=== PATIENT | male | born 1940 | race Caucasian/White ===

== ENCOUNTER 2022-09-08 11:38 | Inpatient (IN) | payer MEDICARE ==
[2022-09-08 12:40] LABS: #Eosinphils 0.2 10x3/uL (0.0-0.5); #Monocytes 1.6 10x3/uL (0.0-1.1); #Neutrophils 6.9 10x3/uL (1.5-8.4); %Basophils 0.4 % (0.0-2.0); %Lymphocytes 22.2 % (18.0-47.0); %Monocytes 14.4 % (0.0-10.0); %Neutrophils 60.6 % (40.0-75.0); Hemoglobin 13.9 g/dL (13.5-17.5); Mean Corpuscular HGB CONC 33.1 g/dL (32.0-36.0); Mean Corpuscular Hemoglobin 29.6 pg (27.0-33.0); Mean Corpuscular Volume 89.6 fl (81.2-95.1); Mean Platelet Volume 9.1 fl (7.4-10.4); Platelet Count 325 10x3/uL (150-450); RBC Distribution Width 13.9 % (11.5-14.5); Red Blood Cell (RBC) Count 4.69 10x6/uL (4.32-5.72); White Blood Cell (WBC) Count 11.3 10x3/uL (3.5-10.5)
[2022-09-08 12:50] LABS: ALT (SGPT) 25 U/L (8-55); AST (SGOT) 28 U/L (5-34); Acetaminophen Less than 10.0 mcg/mL (10.0-30.0); Albumin 3.9 g/dL (3.4-4.8); Alcohol Less than 10 mg/dL (Less than 10); Alkaline Phosphatase 63 U/L (40-110); Anion Gap 14 mmol/L (10-20); BUN (Urea Nitrogen) 26 mg/dL (8.4-25.7); Bilirubin, Total 0.7 mg/dL (0.2-1.2); Calc. Creatinine Clearance 0 mL/min (70-130); Calcium 9.1 mg/dL (7.8-10.44); Carbon Dioxide 17 mmol/L (23-31); Chloride 109 mmol/L (98-107); Estimated GFR 87; Globulin 3.1 g/dL (2.4-3.5); Glucose 106 mg/dL (83-110); Potassium 4.1 mmol/L (3.5-5.1); Salicylate Less than 8.0 mg/dL (15.0-30.0); Sodium 136 mmol/L (136-145)
[2022-09-08 13:49] LABS: Bilirubin Neg (Negative); Blood, Urine Negative (Negative); Clarity Clear (Clear); Glucose, Urine (Dipstick) Normal (Negative); Ketone, Urine Negative (Negative); Leukocyte Negative (Negative); Nitrite Negative (Negative); Protein, Urine (Dipstick) 15 mg/dl (Neg-Trace); Specific Gravity, Urine 1.025 (1.005-1.030); Urobilinogen Normal mg/dL (Less than 2)
[2022-09-08 13:59] LABS: Amphetamine Not Detected (NotDetected); Barbiturates Screen Not Detected (NotDetected); Benzodiazepine Screen Not Detected (NotDetected); Cocaine Metabolite Screen Not Detected (NotDetected); Methadone Not Detected (NotDetected); Methamphetamine Not Detected (NotDetected); Opiate Screen Not Detected (NotDetected); Oxycodone Screen Not Detected (NotDetected); Phencyclidine (PCP) Not Detected (NotDetected); THC/Cannabinoid Screen Not Detected (NotDetected); Tricyclic Screen Not Detected (NotDetected)
[2022-09-08] MEDS ORDERED: Ondansetron ODT 4 MG TAB PO PRN (15:53)
[2022-09-08] MEDS ORDERED: Acetaminophen 325 MG TAB PO PRN (15:53)
[2022-09-08] MEDS ORDERED: Ondansetron PF 4 MG/2 ML Vial IVP PRN (15:53)
[2022-09-08 21:07] VITALS: BMI 30.6
[2022-09-08] MEDS ORDERED: Sodium Chloride 0.9% 1,000 ML IV SCH (23:00)
[2022-09-09 04:31] LABS: #Eosinphils 0.3 10x3/uL (0.0-0.5); #Monocytes 1.3 10x3/uL (0.0-1.1); #Neutrophils 6.2 10x3/uL (1.5-8.4); %Basophils 0.4 % (0.0-2.0); %Eosinophils 2.5 % (0.0-6.0); %Lymphocytes 23.4 % (18.0-47.0); %Monocytes 12.9 % (0.0-10.0); %Neutrophils 60.5 % (40.0-75.0); Hemoglobin 13.1 g/dL (13.5-17.5); Mean Corpuscular HGB CONC 33.9 g/dL (32.0-36.0); Mean Corpuscular Hemoglobin 30.1 pg (27.0-33.0); Mean Corpuscular Volume 88.7 fl (81.2-95.1); Mean Platelet Volume 9.5 fl (7.4-10.4); Platelet Count 294 10x3/uL (150-450); RBC Distribution Width 13.5 % (11.5-14.5); Red Blood Cell (RBC) Count 4.35 10x6/uL (4.32-5.72); White Blood Cell (WBC) Count 10.3 10x3/uL (3.5-10.5)
[2022-09-09 04:49] LABS: Anion Gap 14 mmol/L (10-20); BUN (Urea Nitrogen) 19 mg/dL (8.4-25.7); Calc. Creatinine Clearance 97 mL/min (70-130); Calcium 8.7 mg/dL (7.8-10.44); Carbon Dioxide 20 mmol/L (23-31); Chloride 109 mmol/L (98-107); Estimated GFR 87; Glucose 105 mg/dL (83-110); Sodium 139 mmol/L (136-145)
[2022-09-09] MEDS: Lactated Ringer's 500 ML IV SCH ×2 (11:56→23:31)
[2022-09-09] MEDS ORDERED: Doxepin HCl 10 MG CAP PO PRN (16:53)
[2022-09-09] MEDS ORDERED: Polyethylene Glycol 3350 17 GM Packet PO SCH (18:00)
[2022-09-09] MEDS ORDERED: Ziprasidone 20 MG VIAL IM SCH (19:00)
[2022-09-09] MEDS ORDERED: QUEtiapine 25 MG TAB PO SCH (21:00)
[2022-09-10] MEDS ORDERED: Sterile Water 10 ML ONE (05:57)
[2022-09-10] MEDS ORDERED: Ziprasidone 20 MG VIAL IM SCH (06:00)
[2022-09-10] MEDS: Lactated Ringer's 500 ML IV SCH ×2 (06:31→15:45)
[2022-09-10 08:26] LABS: #Monocytes 0.9 10x3/uL (0.0-1.1); %Basophils 0.4 % (0.0-2.0); %Eosinophils 0.4 % (0.0-6.0); %Lymphocytes 17.4 % (18.0-47.0); %Monocytes 8.6 % (0.0-10.0); %Neutrophils 72.8 % (40.0-75.0); Mean Corpuscular HGB CONC 33.7 g/dL (32.0-36.0); Mean Corpuscular Hemoglobin 29.8 pg (27.0-33.0); Mean Corpuscular Volume 88.5 fl (81.2-95.1); Mean Platelet Volume 9.1 fl (7.4-10.4); Platelet Count 391 10x3/uL (150-450); RBC Distribution Width 13.4 % (11.5-14.5); White Blood Cell (WBC) Count 10.9 10x3/uL (3.5-10.5)
[2022-09-10 09:10] LABS: Anion Gap 14 mmol/L (10-20); BUN (Urea Nitrogen) 16 mg/dL (8.4-25.7); Calc. Creatinine Clearance 72 mL/min (70-130); Calcium 9.5 mg/dL (7.8-10.44); Carbon Dioxide 24 mmol/L (23-31); Chloride 105 mmol/L (98-107); Estimated GFR 63; Glucose 129 mg/dL (83-110); Potassium 4.2 mmol/L (3.5-5.1); Sodium 139 mmol/L (136-145)
[2022-09-10] MEDS: Polyethylene Glycol 3350 17 GM Packet PO SCH (14:45)
[2022-09-10] MEDS: pyridOXINE 50 MG (B6) TAB PO SCH (21:41)
[2022-09-10] MEDS: Aspirin 81 mg Enteric Coated Tablet PO SCH (21:41)
[2022-09-10] MEDS: Cyanocobalamin (Vitamin B-12) 1,000 MCG TAB PO SCH (21:42)
[2022-09-10] MEDS: Folic Acid 1 MG TAB PO SCH (21:42)
[2022-09-10] MEDS: Heparin 5,000 UNITS/ML VIAL SC SCH (21:42)
[2022-09-10] MEDS: Thiamine 100 MG TAB PO SCH (21:43)
[2022-09-10] MEDS: Multivit, Therapeutic 1 TAB PO SCH (21:43)
[2022-09-10] MEDS ORDERED: QUEtiapine 25 MG TAB PO SCH (22:15)
[2022-09-11 04:00] LABS: #Eosinphils 0.4 10x3/uL (0.0-0.5); #Monocytes 1.2 10x3/uL (0.0-1.1); #Neutrophils 5.8 10x3/uL (1.5-8.4); %Basophils 0.4 % (0.0-2.0); %Eosinophils 3.3 % (0.0-6.0); %Lymphocytes 30.4 % (18.0-47.0); %Monocytes 11.5 % (0.0-10.0); %Neutrophils 54.2 % (40.0-75.0); Hemoglobin 12.7 g/dL (13.5-17.5); Mean Corpuscular HGB CONC 33.7 g/dL (32.0-36.0); Mean Corpuscular Hemoglobin 29.9 pg (27.0-33.0); Mean Corpuscular Volume 88.7 fl (81.2-95.1); Platelet Count 338 10x3/uL (150-450); RBC Distribution Width 13.6 % (11.5-14.5); Red Blood Cell (RBC) Count 4.25 10x6/uL (4.32-5.72); White Blood Cell (WBC) Count 10.7 10x3/uL (3.5-10.5)
[2022-09-11 04:04] LABS: Phosphorus 4.1 mg/dL (2.3-4.7)
[2022-09-11 04:08] LABS: Anion Gap 14 mmol/L (10-20); BUN (Urea Nitrogen) 20 mg/dL (8.4-25.7); Calc. Creatinine Clearance 79 mL/min (70-130); Calcium 8.7 mg/dL (7.8-10.44); Carbon Dioxide 23 mmol/L (23-31); Chloride 107 mmol/L (98-107); Estimated GFR 71; Glucose 112 mg/dL (83-110); Magnesium 2.1 mg/dL (1.6-2.6); Potassium 3.9 mmol/L (3.5-5.1); Sodium 140 mmol/L (136-145)
[2022-09-11] MEDS ORDERED: Lactated Ringer's 500 ML IV SCH (06:00)
[2022-09-11] MEDS: Lactated Ringer's 1,000 ML IV SCH (06:31)
[2022-09-11] MEDS: Lactated Ringer's 500 ML IV SCH (06:49)
[2022-09-11] MEDS: Polyethylene Glycol 3350 17 GM Packet PO SCH ×2 (09:30→22:55)
[2022-09-11] MEDS: Heparin 5,000 UNITS/ML VIAL SC SCH ×2 (09:30→22:54)
[2022-09-11] MEDS: Sterile Water 10 ML ONE ×2 (20:00→20:43)
[2022-09-11] MEDS ORDERED: Ziprasidone 20 MG VIAL IM SCH (20:30)
[2022-09-11] MEDS ORDERED: QUEtiapine 25 MG TAB PO SCH (21:00)
[2022-09-11] MEDS ORDERED: Bisacodyl 10 MG SUPP PR SCH (21:00)
[2022-09-11] MEDS: Aspirin 81 mg Enteric Coated Tablet PO SCH ×2 (22:38→23:07)
[2022-09-11] MEDS: Folic Acid 1 MG TAB PO SCH ×2 (22:38→23:07)
[2022-09-11] MEDS: QUEtiapine 25 MG TAB PO SCH ×2 (22:40→23:02)
[2022-09-11] MEDS: Cyanocobalamin (Vitamin B-12) 1,000 MCG TAB PO SCH (22:54)
[2022-09-11] MEDS: Multivit, Therapeutic 1 TAB PO SCH (22:54)
[2022-09-11] MEDS: Senokot S 8.6-50 MG TAB PO SCH (22:55)
[2022-09-11] MEDS: pyridOXINE 50 MG (B6) TAB PO SCH (22:55)
[2022-09-11] MEDS: Thiamine 100 MG TAB PO SCH (22:55)
[2022-09-12] MEDS: Lactated Ringer's 1,000 ML IV SCH ×3 (02:30→22:30)
[2022-09-12 03:44] LABS: Anion Gap 15 mmol/L (10-20); BUN (Urea Nitrogen) 16 mg/dL (8.4-25.7); Calc. Creatinine Clearance 84 mL/min (70-130); Calcium 9.2 mg/dL (7.8-10.44); Carbon Dioxide 23 mmol/L (23-31); Chloride 102 mmol/L (98-107); Estimated GFR 76; Glucose 142 mg/dL (83-110); Potassium 4.1 mmol/L (3.5-5.1); Sodium 136 mmol/L (136-145)
[2022-09-12 03:56] LABS: #Monocytes 0.8 10x3/uL (0.0-1.1); #Neutrophils 10.8 10x3/uL (1.5-8.4); %Basophils 0.2 % (0.0-2.0); %Eosinophils 0.2 % (0.0-6.0); %Lymphocytes 10.7 % (18.0-47.0); %Monocytes 5.8 % (0.0-10.0); %Neutrophils 82.7 % (40.0-75.0); Hemoglobin 13.7 g/dL (13.5-17.5); Mean Corpuscular HGB CONC 34.3 g/dL (32.0-36.0); Mean Corpuscular Hemoglobin 30.1 pg (27.0-33.0); Mean Corpuscular Volume 87.7 fl (81.2-95.1); Mean Platelet Volume 9.2 fl (7.4-10.4); Platelet Count 372 10x3/uL (150-450); RBC Distribution Width 13.1 % (11.5-14.5); Red Blood Cell (RBC) Count 4.55 10x6/uL (4.32-5.72)
[2022-09-12] MEDS: Senokot S 8.6-50 MG TAB PO SCH ×2 (10:46→22:46)
[2022-09-12] MEDS: Heparin 5,000 UNITS/ML VIAL SC SCH ×2 (10:47→22:42)
[2022-09-12] MEDS: Polyethylene Glycol 3350 17 GM Packet PO SCH ×2 (10:47→22:38)
[2022-09-12] MEDS ORDERED: Bisacodyl 10 MG SUPP PR SCH ×4 (12:15→14:00)
[2022-09-12] MEDS ORDERED: Milk Of Magnesia 30 ML UDCUP PO SCH (14:00)
[2022-09-12] MEDS ORDERED: Piperacillin/Tazobactam 3.375 GM in Sodium Chloride 0.9% 100 ML IVPB SCH ×2 (14:30→15:00)
[2022-09-12] MEDS: Piperacillin/Tazobactam 3.375 GM in Sodium Chloride 0.9% 100 ML IVPB SCH (22:31)
[2022-09-12] MEDS: Cyanocobalamin (Vitamin B-12) 1,000 MCG TAB PO SCH (22:40)
[2022-09-12] MEDS: pyridOXINE 50 MG (B6) TAB PO SCH (22:40)
[2022-09-12] MEDS: Aspirin 81 mg Enteric Coated Tablet PO SCH (22:40)
[2022-09-12] MEDS: Multivit, Therapeutic 1 TAB PO SCH (22:40)
[2022-09-12] MEDS: Folic Acid 1 MG TAB PO SCH (22:40)
[2022-09-12] MEDS: QUEtiapine 25 MG TAB PO SCH (22:42)
[2022-09-12] MEDS: Thiamine 100 MG TAB PO SCH (22:46)
[2022-09-12] MEDS: Metamucil PACK PO SCH (23:03)
[2022-09-13] MEDS: Piperacillin/Tazobactam 3.375 GM in Sodium Chloride 0.9% 100 ML IVPB SCH ×3 (04:07→21:56)
[2022-09-13 04:25] LABS: #Eosinphils 0.3 10x3/uL (0.0-0.5); #Monocytes 1.1 10x3/uL (0.0-1.1); #Neutrophils 6.7 10x3/uL (1.5-8.4); %Basophils 0.4 % (0.0-2.0); %Eosinophils 2.5 % (0.0-6.0); %Lymphocytes 23.9 % (18.0-47.0); %Monocytes 10.2 % (0.0-10.0); %Neutrophils 62.7 % (40.0-75.0); Hemoglobin 12.8 g/dL (13.5-17.5); Mean Corpuscular HGB CONC 34.2 g/dL (32.0-36.0); Mean Corpuscular Hemoglobin 30.2 pg (27.0-33.0); Mean Corpuscular Volume 88.2 fl (81.2-95.1); Mean Platelet Volume 8.8 fl (7.4-10.4); Platelet Count 328 10x3/uL (150-450); RBC Distribution Width 13.2 % (11.5-14.5); Red Blood Cell (RBC) Count 4.24 10x6/uL (4.32-5.72); White Blood Cell (WBC) Count 10.6 10x3/uL (3.5-10.5)
[2022-09-13 04:29] LABS: Anion Gap 12 mmol/L (10-20); BUN (Urea Nitrogen) 15 mg/dL (8.4-25.7); Calc. Creatinine Clearance 80 mL/min (70-130); Calcium 8.9 mg/dL (7.8-10.44); Carbon Dioxide 24 mmol/L (23-31); Chloride 104 mmol/L (98-107); Estimated GFR 71; Glucose 124 mg/dL (83-110); Potassium 3.9 mmol/L (3.5-5.1); Sodium 136 mmol/L (136-145)
[2022-09-13 04:30] LABS: CRP (Inflammatory) 3.42 mg/dL (= or < 0.5); Magnesium 2.1 mg/dL (1.6-2.6)
[2022-09-13 04:32] LABS: Lactic Acid 0.8 mmol/L (0.5-2.2)
[2022-09-13 04:34] LABS: Phosphorus 3.8 mg/dL (2.3-4.7)
[2022-09-13] MEDS ORDERED: Metamucil PACK ONE (11:19)
[2022-09-13] MEDS: Polyethylene Glycol 3350 17 GM Packet PO SCH ×2 (11:28→22:03)
[2022-09-13] MEDS: Metamucil PACK PO SCH ×2 (11:28→22:04)
[2022-09-13] MEDS: Senokot S 8.6-50 MG TAB PO SCH ×2 (11:29→22:03)
[2022-09-13] MEDS: Heparin 5,000 UNITS/ML VIAL SC SCH ×2 (11:29→22:05)
[2022-09-13] MEDS ORDERED: Milk Of Magnesia 30 ML UDCUP PO SCH (12:00)
[2022-09-13] MEDS: Bisacodyl 10 MG SUPP PR SCH (14:48)
[2022-09-13] MEDS: Budesonide 0.5 MG/2 ML NEB NEB SCH (20:55)
[2022-09-13] MEDS: Cyanocobalamin (Vitamin B-12) 1,000 MCG TAB PO SCH (21:57)
[2022-09-13] MEDS: Multivit, Therapeutic 1 TAB PO SCH (21:57)
[2022-09-13] MEDS: Aspirin 81 mg Enteric Coated Tablet PO SCH (21:57)
[2022-09-13] MEDS: QUEtiapine 25 MG TAB PO SCH (21:57)
[2022-09-13] MEDS: Folic Acid 1 MG TAB PO SCH (21:57)
[2022-09-13] MEDS: pyridOXINE 50 MG (B6) TAB PO SCH (21:58)
[2022-09-13] MEDS: Saccharomyces boulardii 250 MG CAP PO SCH (23:02)
[2022-09-13] MEDS: Thiamine 100 MG TAB PO SCH (23:03)
[2022-09-14 04:35] LABS: #Basophils 0.1 10x3/uL (0.0-0.2); #Eosinphils 0.4 10x3/uL (0.0-0.5); #Neutrophils 6.7 10x3/uL (1.5-8.4); %Basophils 0.7 % (0.0-2.0); %Eosinophils 3.5 % (0.0-6.0); %Lymphocytes 22.2 % (18.0-47.0); %Monocytes 9.4 % (0.0-10.0); %Neutrophils 63.8 % (40.0-75.0); Hemoglobin 13.3 g/dL (13.5-17.5); Mean Corpuscular HGB CONC 33.8 g/dL (32.0-36.0); Mean Corpuscular Hemoglobin 29.8 pg (27.0-33.0); Mean Corpuscular Volume 88.1 fl (81.2-95.1); Mean Platelet Volume 9.1 fl (7.4-10.4); Platelet Count 362 10x3/uL (150-450); RBC Distribution Width 13.4 % (11.5-14.5); Red Blood Cell (RBC) Count 4.46 10x6/uL (4.32-5.72); White Blood Cell (WBC) Count 10.4 10x3/uL (3.5-10.5)
[2022-09-14 04:41] LABS: ALT (SGPT) 28 U/L (8-55); AST (SGOT) 28 U/L (5-34); Albumin 3.8 g/dL (3.4-4.8); Alkaline Phosphatase 54 U/L (40-110); Anion Gap 15 mmol/L (10-20); BUN (Urea Nitrogen) 20 mg/dL (8.4-25.7); Bilirubin, Total 0.7 mg/dL (0.2-1.2); Calc. Creatinine Clearance 71 mL/min (70-130); Calcium 9.2 mg/dL (7.8-10.44); Carbon Dioxide 22 mmol/L (23-31); Chloride 106 mmol/L (98-107); Estimated GFR 61; Globulin 2.8 g/dL (2.4-3.5); Glucose 130 mg/dL (83-110); Potassium 4.2 mmol/L (3.5-5.1); Protein, Total 6.6 g/dL (5.8-8.1); Sodium 139 mmol/L (136-145)
[2022-09-14] MEDS: Piperacillin/Tazobactam 3.375 GM in Sodium Chloride 0.9% 100 ML IVPB SCH (04:56)
[2022-09-14] MEDS: Polyethylene Glycol 3350 17 GM Packet PO SCH (08:10)
[2022-09-14] MEDS: Heparin 5,000 UNITS/ML VIAL SC SCH ×2 (08:11→22:41)
[2022-09-14] MEDS: Senokot S 8.6-50 MG TAB PO SCH ×2 (08:11→22:40)
[2022-09-14] MEDS: Metamucil PACK PO SCH ×3 (08:11→22:40)
[2022-09-14] MEDS: Budesonide 0.5 MG/2 ML NEB NEB SCH ×2 (08:30→18:35)
[2022-09-14] MEDS ORDERED: Polyethylene Glycol 3350 17 GM Packet PO PRN (10:58)
[2022-09-14] MEDS: Bisacodyl 10 MG SUPP PR SCH (14:27)
[2022-09-14] MEDS: Aspirin 81 mg Enteric Coated Tablet PO SCH (22:38)
[2022-09-14] MEDS: Thiamine 100 MG TAB PO SCH (22:39)
[2022-09-14] MEDS: QUEtiapine 25 MG TAB PO SCH (22:39)
[2022-09-14] MEDS: Folic Acid 1 MG TAB PO SCH (22:39)
[2022-09-14] MEDS: Amoxicillin/Potassium Clav 875 MG TAB PO SCH (22:39)
[2022-09-14] MEDS: Cyanocobalamin (Vitamin B-12) 1,000 MCG TAB PO SCH (22:39)
[2022-09-14] MEDS: pyridOXINE 50 MG (B6) TAB PO SCH (22:39)
[2022-09-14] MEDS: Multivit, Therapeutic 1 TAB PO SCH (22:40)
[2022-09-14] MEDS: Saccharomyces boulardii 250 MG CAP PO SCH (22:40)
[2022-09-15] MEDS: Folic Acid 1 MG TAB PO SCH (02:05)
[2022-09-15] MEDS: Aspirin 81 mg Enteric Coated Tablet PO SCH ×2 (02:05→19:38)
[2022-09-15] MEDS: Amoxicillin/Potassium Clav 875 MG TAB PO SCH ×3 (02:05→19:37)
[2022-09-15] MEDS: Cyanocobalamin (Vitamin B-12) 1,000 MCG TAB PO SCH (02:05)
[2022-09-15] MEDS: Senokot S 8.6-50 MG TAB PO SCH ×2 (02:06→07:57)
[2022-09-15] MEDS: Metamucil PACK PO SCH ×2 (02:06→07:58)
[2022-09-15] MEDS: Saccharomyces boulardii 250 MG CAP PO SCH (02:06)
[2022-09-15] MEDS: pyridOXINE 50 MG (B6) TAB PO SCH ×2 (02:06→19:38)
[2022-09-15] MEDS: Multivit, Therapeutic 1 TAB PO SCH (02:06)
[2022-09-15] MEDS: QUEtiapine 25 MG TAB PO SCH ×2 (02:06→19:37)
[2022-09-15] MEDS: Thiamine 100 MG TAB PO SCH (02:07)
[2022-09-15 05:43] LABS: #Basophils 0.1 10x3/uL (0.0-0.2); #Eosinphils 0.4 10x3/uL (0.0-0.5); #Neutrophils 6.3 10x3/uL (1.5-8.4); %Basophils 0.6 % (0.0-2.0); %Eosinophils 3.8 % (0.0-6.0); %Lymphocytes 23.9 % (18.0-47.0); %Monocytes 9.7 % (0.0-10.0); %Neutrophils 61.6 % (40.0-75.0); Hemoglobin 13.4 g/dL (13.5-17.5); Mean Corpuscular HGB CONC 33.1 g/dL (32.0-36.0); Mean Corpuscular Hemoglobin 29.5 pg (27.0-33.0); Platelet Count 386 10x3/uL (150-450); RBC Distribution Width 13.3 % (11.5-14.5); Red Blood Cell (RBC) Count 4.55 10x6/uL (4.32-5.72); White Blood Cell (WBC) Count 10.1 10x3/uL (3.5-10.5)
[2022-09-15 06:04] LABS: Anion Gap 13 mmol/L (10-20); BUN (Urea Nitrogen) 21 mg/dL (8.4-25.7); Calc. Creatinine Clearance 66 mL/min (70-130); Calcium 9.1 mg/dL (7.8-10.44); Carbon Dioxide 24 mmol/L (23-31); Chloride 105 mmol/L (98-107); Estimated GFR 57; Glucose 141 mg/dL (83-110); Sodium 138 mmol/L (136-145)
[2022-09-15] MEDS: Budesonide 0.5 MG/2 ML NEB NEB SCH ×2 (06:50→19:26)
[2022-09-15] MEDS: Heparin 5,000 UNITS/ML VIAL SC SCH (08:00)
[2022-09-15] MEDS: Bisacodyl 10 MG SUPP PR SCH (15:44)
[2022-09-15 20:34] VITALS: BP 154/92; TEMP 98.3
== END 2022-09-15 20:00 | DRG 70 ==
LOC: CSHERS 11:38 → CSHTELE 15:53
PROVIDERS: ADMIT Internal Medicine; ATTEND Internal Medicine
DX: G93.41 Metabolic encephalopathy (principal); J69.0 Pneumonitis due to inhalation of food and vomit; E87.20 Acidosis, unspecified; G93.49 Other encephalopathy; K59.00 Constipation, unspecified; E66.9 Obesity, unspecified; Z68.30 Body mass index [BMI] 30.0-30.9, adult; K21.9 Gastro-esophageal reflux disease without esophagitis; E86.0 Dehydration; D63.1 Anemia in chronic kidney disease; R53.81 Other malaise; D53.9 Nutritional anemia, unspecified; N18.2 Chronic kidney disease, stage 2 (mild); Z60.2 Problems related to living alone; K52.89 Other specified noninfective gastroenteritis and colitis; D72.829 Elevated white blood cell count, unspecified; F03.90 Unspecified dementia, unspecified severity, without behavioral disturbance, psychotic disturbance, mood disturbance, and anxiety; I65.21 Occlusion and stenosis of right carotid artery
CPT/HCPCS: 36415; 36416; 70450; 70551; 71045; 74018; 80048; 80053; 80306; 80307; 81003; 82533; 82550; 82607; 83605; 83735; 84100; 84443; 84484; 85025; 86140; 87040; 87086; 93005; 93880; 94640; 94760; 94762; 95819; 95957; J1644; J2543; J3486; J3490; J7050; J7120; J7611; J7626

== ENCOUNTER 2022-10-05 04:47 | Emergency (ER) | payer OTHER, MEDICARE | END 2022-10-05 09:00 | LOC: CSHERS 04:47 | DX: Z04.3 Encounter for examination and observation following other accident (principal); K21.9 Gastro-esophageal reflux disease without esophagitis | CPT/HCPCS: 70450 ==

== ENCOUNTER 2022-10-06 10:47 | Emergency (ER) | payer MEDICARE | END 2022-10-06 12:47 | disposition home or self-care (01) | LOC: CSHERS 10:47 | DX: S43.401A Unspecified sprain of right shoulder joint, initial encounter (principal); W19.XXXA Unspecified fall, initial encounter | CPT/HCPCS: 70450 ==

== ENCOUNTER 2022-10-13 18:29 | Emergency (ER) | payer MEDICARE ==
[2022-10-13 19:55] LABS: #Eosinphils 0.2 10x3/uL (0.0-0.5); #Monocytes 1.2 10x3/uL (0.0-1.1); %Basophils 0.2 % (0.0-2.0); %Lymphocytes 19.1 % (18.0-47.0); %Monocytes 11.8 % (0.0-10.0); %Neutrophils 66.5 % (40.0-75.0); Hemoglobin 13.3 g/dL (13.5-17.5); Mean Corpuscular HGB CONC 33.8 g/dL (32.0-36.0); Mean Corpuscular Hemoglobin 29.8 pg (27.0-33.0); Mean Corpuscular Volume 87.9 fl (81.2-95.1); Mean Platelet Volume 9.3 fl (7.4-10.4); Platelet Count 424 10x3/uL (150-450); RBC Distribution Width 13.5 % (11.5-14.5); Red Blood Cell (RBC) Count 4.47 10x6/uL (4.32-5.72); White Blood Cell (WBC) Count 10.5 10x3/uL (3.5-10.5)
[2022-10-13 20:09] LABS: ALT (SGPT) 38 U/L (8-55); Albumin 3.6 g/dL (3.4-4.8); Alkaline Phosphatase 70 U/L (40-110); Anion Gap 17 mmol/L (10-20); BUN (Urea Nitrogen) 13 mg/dL (8.4-25.7); Bilirubin, Total 0.2 mg/dL (0.2-1.2); Calc. Creatinine Clearance 0 mL/min (70-130); Calcium 8.7 mg/dL (7.8-10.44); Carbon Dioxide 20 mmol/L (23-31); Chloride 107 mmol/L (98-107); Estimated GFR 75; Glucose 135 mg/dL (83-110); Potassium 4.5 mmol/L (3.5-5.1); Protein, Total 6.6 g/dL (5.8-8.1); Sodium 139 mmol/L (136-145)
[2022-10-13 20:10] LABS: AST (SGOT) 39 U/L (5-34)
== END 2022-10-13 20:52 | disposition home or self-care (01) ==
LOC: CSHERS 18:29
DX: R41.82 Altered mental status, unspecified (principal); K21.9 Gastro-esophageal reflux disease without esophagitis; Z79.899 Other long term (current) drug therapy
CPT/HCPCS: 70450; 80053; 84484; 85025; 93005